=== PATIENT | female | born 1950 | race Caucasian/White ===

== ENCOUNTER 2016-06-23 09:56 | Inpatient (IN) ==
--- NOTE | 2016-06-23 10:10 | PROVIDER DOCUMENTATION ---
HPI-General Adult - General Chief Complaint: Nausea Stated Complaint: NAUSEA, SOB Time Seen by Provider: 06/23/16 10:06 Source: patient Allergies/Adverse Reactions: Patient Allergies Allergy/AdvReac Type Severity Reaction Status Date / Time No Known Allergies Allergy Verified 06/23/16 10:15 Home Medications: Home Medication List Medication Instructions Recorded Confirmed Last Taken Type Calcium Carbonate/Vitamin D3 2 each PO DAILY 12/26/14 06/02/16 06/01/16 History [Calcium 500 + Vit D Caplet] Clonazepam 0.5 mg PO PRN PRN 12/26/14 06/02/16 Unknown History Diphenhydramine [Benadryl] 25 mg PO QHS 12/26/14 06/02/16 06/01/16 History Estradiol Vaginal Cream [Estrace 1 applicator VAG DIRECTED 12/26/14 06/02/16 12/21/14 History Vaginal Cream] Fluticasone 50 Mcg Nasal [place] 1 spray WADE DAILY 12/26/14 06/02/16 06/01/16 History [Flonase] Losartan/Hydrochlorothiazide 1 each PO DAILY 12/26/14 06/02/16 06/01/16 History [Losartan-Hctz 50-12.5 mg Tab] Multivitamin [Daily Multiple 1 each PO DAILY 12/26/14 06/02/16 12/26/14 History Vitamin] Vit C/Vit E AC/Lut/Copper/Zinc 2 each PO DAILY 12/26/14 06/02/16 12/26/14 History [Preservision Lutein Softgel] Zinc 50 mg PO DAILY 12/26/14 06/02/16 06/01/16 History Simvastatin 10 mg PO DAILY 06/02/16 06/02/16 06/01/16 History Apixaban [Eliquis] 5 mg PO BID #60 tablet 06/04/16 Unknown Rx Diltiazem C.d. [Cardizem Cd] 120 mg PO DAILY #30 capsule 06/04/16 Unknown Rx Levothyroxine [Synthroid] 50 microgm PO DAILY #30 06/04/16 06/02/16 06/01/16 Rx - History of Present Illness -Gen Adult Nature of Presenting Problems: 66 yo female presents to ER with c/o nausea and stomach ache after eating honey mustard pretzels yesterday. She did have 2 BM this morning but not diarrhea. She denies shortness of breath and chest pain. She has a stress test scheduled with Dr. Parr tomorrow. Location of Pain/Injury: reports: none Pain Radiation: reports: no radiation Quality of Pain: reports: none Severity: reports: mild Onset/Duration: reports: last night Timing: reports: still present Context/Activities at Onset: reports: possible bad food Modifying Factors: improves with: nothing Associated Symptoms: reports: nausea Similar Symptoms Previously?: No Recently seen or treated by another doctor?: No Review of Systems - Adult - REVIEW OF SYSTEMS - ADULT Constitutional: reports: no symptoms reported Eyes: reports: no symptoms reported Ears, Nose, Mouth & Throat: reports: no symptoms reported Cardiovascular: reports: no symptoms reported Respiratory: reports: no symptoms reported Gastrointestinal: reports: see HPI, nausea Genitourinary: reports: no symptoms reported Musculoskeletal: reports: no symptoms reported Integumentary: reports: no symptoms reported Neurological: reports: no symptoms reported Psychiatric: reports: no symptoms reported Endocrine: reports: no symptoms reported Hematologic/Lymphatic: reports: no symptoms reported Allergic/Immunologic: reports: no symptoms reported All Other Systems: Reviewed and Negative Past History - Adult - PAST MEDICAL HISTORY-ADULT Review of Records: reports: Old Records Reviewed, Nursing Assessment Review, Medications Reviewed, Social history reviewed & non-contributory. Cardiovascular: reports: A-Fib, HTN, hyperlipidemia Psychiatric: reports: anxiety Endocrine/Immune: reports: thyroid disorder (hypothyroid) - PRIOR SURGERIES/PROCEDURES Surgical/Procedure History: reports: hysterectomy - IMMUNIZATION STATUS Childhood Immunizations: See Nurse Assessment Flu Vaccine: See Nurse Assessment - SOCIAL HISTORY Substance Use: none/never, denies Alcohol Use Frequency: never Living Situation: family Physical Exam-General - PHYSICAL EXAM-ADULT Initial Vital Signs Reviewed: Yes - CONSTITUTIONAL General Appearance: alert, no apparent distress - EYES Eyes: PERRL/EOMI - HEAD, EARS, NOSE, MOUTH & THROAT HENMT: normocephalic/atraumatic - RESPIRATORY Respiratory: no respiratory distress - CARDIOVASCULAR Cardiovascular: tachycardia, irregularly irregular - GASTROINTESTINAL (ABDOMEN) Abdominal Exam: normal bowel sounds, non tender, soft - MUSCULOSKELETAL Back Exam: normal inspection Extremity: normal inspection, no pedal edema - SKIN Integumentary: normal turgor, warm/dry, pallor - NEUROLOGIC Neurologic: grossly normal - PSYCHIATRIC Psych/Mental Status: normal mood/affect, normal thought content, normal thought process, oriented x 3 Progress - PLAN OF CARE/RESULTS Progress/Plan/Lab Results: 1015-Discussed patient case/history/reviewed EKG/discussed VS which shows hypotension with Dr. Kumari; he instructed to order cardizem 10mg IV. 1050-Reviewed repeat EKG with Dr. Kumari; instructed to order another cardizem 10mg IV. 1225-Discussed patient case with Dr. Juares; he assessed her at bedside and her VS; instructed to order neosynephrine drip to hang with marcos. 1400-Dr. Ibrahim in ER to see patient. 1425-Spoke with Dr. Ibrahim on the phone; patient will be transferred to [facility] and he has already spoke to Dr. Castro and Dr. Parr in regards to this. Result Diagrams: 06/23/16 10:23 06/23/16 10:23 - REASSESSMENT Reassessment #1 Time Reassessed: 11:07 Status: improving Reassessment Comment: nausea is resolving Reassessment #2 Time Reassessed: 11:45 Status: improving - XRAY 1 XRAY Study: Chest Impression: Normal (no evidence of acute disease) XRAY Interpretation: Interpreted by Dr. Logan - CONSULTS/PCP/HOSPITALIST Notification #1 *Consult/PCP/Hospitalist*: Dr. Parr Time Discussed: 11:40 (cardiology) Reason/Comments: does not admit; call hospitalist #2 Consult: Dr. Ibrahim Time Discussed: 12:00 (Hospitalist) Consult Disposition: Will see in ED Departure - Departure Time of Disposition Decision: 11:11 DIAGNOSIS: Nausea, Atrial fibrillation with RVR Atrial fibrillation Qualifiers: Atrial fibrillation type: unspecified Qualified Code(s): I48.91 - Unspecified atrial fibrillation Hypotension Qualifiers: Hypotension type: other hypotension type Qualified Code(s): I95.89 - Other hypotension Disposition: ADMITTED INPATIENT 09 Certified Medical Emergency: Emergent Condition: Good Attestation - Physician/ JN Attestation Patient care was provided by Advanced Practice Provider:: Yes Advanced Practice Provider:: Molly Lloyd Advanced Practice Provider documentation review:: The Mid-level provider documentation, treatment plan and medical decision making was reviewed by the physician who agrees with all treatment and medical decision making by the MLP.
[2016-06-23] MEDS ORDERED: ZOFRAN IV ONE (10:12)
[2016-06-23] MEDS ORDERED: NS 1,000 ML IV ONE ×2 (10:12→11:06)
[2016-06-23] MEDS ORDERED: CARDIZEM IV ONE ×2 (10:18→10:51)
--- NOTE | 2016-06-23 10:26 | EKG Report ---
Test Performed on : 06/23/2016 10:09:41 AM Test Reason : WEAK Blood Pressure : / mmHG Vent. Rate : 106 BPM Atrial Rate : 340 BPM P-R Int : 000 ms QRS Dur : 080 ms QT Int : 334 ms P-R-T Axes : 000 039 -04 degrees QTc Int : 443 ms Atrial fibrillation. with rapid ventricular response. Low voltage QRS Cannot rule out Anterior infarct (cited on or before 03-JUN-2016) Abnormal ECG When compared with ECG of 03-JUN-2016 08:01, Atrial fibrillation. has replaced Sinus rhythm. Nonspecific T wave abnormality no longer evident in Lateral leads Unconfirmed Result
[2016-06-23 10:30] LABS: MANUAL DIFF NEEDED? NO
[2016-06-23 10:31] LABS: BASO% 0.8 % (0.0-0.8); EOS# 0.01 X1000 (0.0-0.7); EOS% 0.2 % (0.0-10.0); HEMATOCRIT 37.7 % (37.0-47.0); HEMOGLOBIN 12.9 g/dL (12.0-16.0); LYMPH# 1.19 X1000 (1.2-3.4); LYMPH% 23.6 % (20.5-51.1); MCH 31.1 PG (27-31); MCHC 34.2 g/dL (33-37); MCV 90.8 FL (81-99); MONO% 7.9 % (1.7-9.3); MPV 9.7 FL (7.4-10.4); NEUT% 67.5 % (42.2-75.2); PLT 311 X1000 (130-400); RBC 4.15 XMIL (4.2-5.4)
[2016-06-23 10:49] LABS: AGAP 15; ALBUMIN 4.1 g/dL (3.5-5.0); ALKALINE PHOSPHATASE 72 U/L (32-104); AMYLASE 47 U/L (20-200); BUN 13 mg/dL (8-22); CALCIUM 9.8 mg/dL (8.8-10.2); CHLORIDE 93 mmol/L (98-107); COSMO 264; GOT 21 U/L (10-30); GPT 14 U/L (10-36); LIPASE 35 U/L (13-60); POTASSIUM 3.7 mmol/L (3.5-5.1); SODIUM 130 mmol/L (136-145); TCO2 22 mmol/L (25-35); TOTAL PROTEIN 6.5 g/dL (6.3-8.3)
[2016-06-23] MEDS ORDERED: NS 1,000 ML ONE (11:06)
[2016-06-23 11:08] LABS: CK-MB 2.18 ng/mL (0.0-5.0)
[2016-06-23 11:21] LABS: INR 1.31 (0.86-1.15); PROTIME 16.6 Seconds (12.1-15.5)
[2016-06-23 11:22] LABS: PTT PL 37.1 Seconds (22.6-43.9)
--- NOTE | 2016-06-23 11:30 | Diag Imaging Result Document ---
PROCEDURE NAME: CHEST-PORTABLE - 06/23/2016 PORTABLE CHEST: FINDINGS: Compared to 09/26/2016. Heart size is normal. There is mild tortuosity of the thoracic aorta. The lungs appear clear. There is no pleural effusion or pneumothorax identified. IMPRESSION: No evidence of acute disease.
[2016-06-23 11:54] LABS: URINE CULTURE PL NEEDED? NO
[2016-06-23 12:08] LABS: BILIRUBIN URINE NEGATIVE (NEGATIVE); BLOOD URINE 1+ (NEGATIVE); CLARITY CLEAR (CLEAR); COLOR YELLOW; GLUCOSE URINE NEGATIVE (NEGATIVE); LEUKOCYTES URINE TRACE (NEGATIVE); NITRITE URINE NEGATIVE (NEGATIVE); PROTEIN URINE NEGATIVE (NEGATIVE); UROBILINOGEN URINE NORMAL
[2016-06-23 12:09] LABS: URINE EPITHELIAL CELLS <10 /HPF (<10); URINE SOURCE CLEAN CATCH; URINE WBC <10 /HPF (<10)
[2016-06-23] MEDS: CARDIZEM 100 MG/NS 100 MG/100 ML IVPB IV SCH (12:13)
--- NOTE | 2016-06-23 12:15 | EKG Report ---
Test Performed on : 06/23/2016 11:15:18 AM Test Reason : REPEAT Blood Pressure : / mmHG Vent. Rate : 077 BPM Atrial Rate : 340 BPM P-R Int : 000 ms QRS Dur : 082 ms QT Int : 390 ms P-R-T Axes : 000 014 -33 degrees QTc Int : 441 ms Atrial fibrillation. Low voltage QRS Abnormal ECG When compared with ECG of 23-JUN-2016 10:32, (Unconfirmed) Atrial fibrillation. has replaced Atrial flutter. Unconfirmed Result
--- NOTE | 2016-06-23 12:16 | EKG Report ---
Test Performed on : 06/23/2016 10:32:01 AM Test Reason : REPEAT Blood Pressure : / mmHG Vent. Rate : 097 BPM Atrial Rate : 267 BPM P-R Int : 000 ms QRS Dur : 082 ms QT Int : 358 ms P-R-T Axes : 000 018 -24 degrees QTc Int : 454 ms Atrial flutter. with variable AV block. Low voltage QRS Abnormal ECG When compared with ECG of 23-JUN-2016 10:09, (Unconfirmed) Atrial flutter. has replaced Atrial fibrillation. Unconfirmed Result
[2016-06-23] MEDS ORDERED: NEO-SYNEPHRINE 50 MG in NS 250 ML IV SCH (12:30)
[2016-06-23] MEDS ORDERED: NEO-SYNEPHRINE ONE (12:42)
[2016-06-23] MEDS ORDERED: NS 250 ML ONE (12:43)
--- NOTE | 2016-06-23 15:51 | CONSULTATION ---
DATE OF CONSULTATION: 06/23/2016 REASON FOR CONSULTATION: Cardiology was consulted for atrial fibrillation. HISTORY OF PRESENT ILLNESS: Ms. Janae Huddleston is a 66-year-old lady who has paroxysmal atrial fibrillation. She was recently admitted with atrial fibrillation at [facility] and has been taking her medications regularly. She had done well. In the last 2 weeks she had 1 episode of palpitation again. Yesterday she says she ate some pretzel and she had abdominal discomfort after that, she did not feel well and she came to the emergency room. This time she felt a slight amount of palpitations but no significant palpitations, was noted to be in atrial fibrillation with low blood pressure as well. She was given Cardizem. She was noted to be hypotensive, was given Brando-Synephrine drip, subsequently converted to sinus rhythm. She denies any chest pain. There is no syncope. At time of my examination she did not complain of any chest pain. REVIEW OF SYSTEMS: A 14-point review of system was done. GI System: There is no history of nausea, she had some abdominal discomfort. There is no dizziness or syncope. There is no hematemesis or melena. Central nervous system: No focal weakness to suggest a CVA or TIA. System: There is no dysuria or hematuria. Respiratory System: There is no history of cough, expectoration, hemoptysis. There is no history of fevers or chills. ALLERGIES: She is not known to be allergic to any medication. SOCIAL HISTORY: She does not smoke. Does not drink. PAST MEDICAL HISTORY: Hypertension, hypothyroidism, anxiety disorder, hysterectomy, macular degeneration. HOME MEDICATIONS: Include Klonopin, Benadryl, Eliquis 5 b.i.d., Cardizem CD 120, Synthroid 50, losartan hydrochlorothiazide. PHYSICAL EXAM: Vital signs: Blood pressure at the time of my examination 130/80. Cardiovascular System: Normal jugular venous pressure. There no thyromegaly. No carotid bruit. First and second heart sounds heard. There is no S3, S4 or gallop. Respiratory System: Normal air entry. There is no crepitations or rhonchi. Abdomen: Soft, nontender. There was no guarding or rigidity. Bowel sounds were heard. Central nervous system: Alert, oriented, was moving all 4 extremities. Extremities: Examination of extremities revealed no pedal edema. HEENT: Atraumatic, normocephalic. Pupils were equal and reacting to light. DATA: Sodium 130, potassium 3.7, BUN 13, creatinine 0.8. Troponin negative. ProBNP 4350. Last echocardiogram revealed ejection fraction of 60-65%. There was no wall motion abnormality. ASSESSMENT AND PLAN: Ms Janae Huddleston is a 66-year-old lady who had abdominal discomfort after eating a pretzel noted some palpitations, came to the emergency room, was noted to be in atrial fibrillation, was given Cardizem. She was also noted to be hypotensive, was started on a Brando-Synephrine drip. She converted to sinus rhythm. RECOMMENDATIONS: 1. She has paroxysmal atrial fibrillation and she had a preserved left ventricular systolic function on echocardiogram recently, she has reverted to sinus rhythm. Will discontinue the Brando-Synephrine. 2. Will set her up to undergo a Cardiolite stress test in the morning to rule out ischemia. 3. Given her paroxysmal symptoms on 3 occasions we will start her on sotalol 40 mg twice daily. 4. We will check her lab work in the morning to make sure BMP is stable. 5. She had elevated proBNP. Echocardiogram was unremarkable. Chest x-ray done on 06/23/2016 was normal. 6. For anticoagulation therapy she is on Eliquis. Would recommend continuing Eliquis. 7. For hypertension we will discontinue the losartan/hydrochlorothiazide, keep her only on the losartan and start her on sotalol. I will discontinue the Cardizem as well. Thank you for the consult. Will follow. cc: Manav Parr MD
[2016-06-23] MEDS: COZAAR PO SCH (16:47)
[2016-06-23] MEDS: BETAPACE PO SCH (16:48)
[2016-06-23] MEDS ORDERED: TYLENOL PO PRN (17:13)
[2016-06-23] MEDS ORDERED: ZOFRAN IV PRN (17:13)
--- NOTE | 2016-06-23 17:36 | HISTORY AND PHYSICAL ---
HISTORY OF PRESENT ILLNESS: Patient is a 66-year-old who presented. She just did not feel good. She said 3 weeks ago she had an episode where she had kind of this film, she felt like of a hazy film over her eyes and just felt bad. Came in to [place]. I think at that time they found some atrial fibrillation and she converted spontaneously. She has done pretty well at home, but then today she felt bad again similarly to when she went to [place]. When she went to the emergency room, they found atrial fibrillation with rapid ventricular rate. She converted back spontaneously into sinus rhythm, and right now she is in sinus rhythm and again feels better. She does get these episodes of epigastric discomfort if she has not eaten in a while and food seems to make her queasy. She was tried on some Prilosec, but apparently it began to give her some lower abdominal cramps. Her primary care doctor is Dr. Alex Toro. PAST MEDICAL HISTORY: 1. Hypertension. 2. Hypothyroidism. Apparently she is followed for a thyroid nodule per Dr. Pompa. She should be on Synthroid 75 mcg daily. 3. She has history of anxiety. 4. Seasonal allergies. 5. Macular degeneration. PAST SURGICAL HISTORY: Status post hysterectomy. SOCIAL HISTORY: Negative for alcohol or tobacco. She is , 1 daughter. FAMILY HISTORY: Father with stomach cancer. Sister with a history of liver cancer and uterine cancer. She has a mother with history of macular degeneration. She has 3 sisters. REVIEW OF SYSTEMS: General: No weight gain or loss. No fever or chills. HEENT: Unremarkable. Respiratory: No increased work of breathing or dyspnea. Cardiovascular: No chest pain or tachy palpitations. GI/: No gross hematuria or dysuria. Musculoskeletal/Neurologic: No significant complaints. Endocrinologic/Hematologic: No significant history. PHYSICAL EXAMINATION: VITAL SIGNS: Temperature 99.3 degrees, pulse 79, respirations 18, blood pressure 121/73. PUPILS: Were equal, round, reactive to light and accommodation. Oral and nasal and mucosa unremarkable. Conjunctivae pink. Sclerae clear. Tympanic membranes intact. NECK: Supple without adenopathy or thyromegaly. WEIGHT: 204 pounds. HEIGHT: 5 feet 9 inches. LABORATORY: White count 5040, hematocrit 37, platelet count 311,000. Sodium 130, potassium 3.7, chloride 93, BUN 13, creatinine 0.8, blood sugar 148, calcium 9.8, CPK was 216, ProBNP 2435, troponin was less than 0.01. ProTime was 16.6, PTT was 37. Urinalysis was unremarkable. There was 10-20 microscopic red blood cells. RADIOLOGY: Chest x-ray: No evidence of acute disease. MEDICATIONS: Eliquis 5 mg b.i.d. Calcium carbonate. Vitamin D3 500, vitamin D caplet two daily. Clonazepam 0.5 mg p.r.n. Cardizem CD 120 mg daily. Estradiol vaginal cream, not sure how often. Fluticasone 1 puff daily. Synthroid 50 mcg daily. Losartan/hydrochlorothiazide 50/12.5 one a day. Multivitamin 1 a day. Simvastatin 10 mg a day. Vitamin C, vitamin E, copper, zinc. For vision lutein soft gel two daily. Zinc 50 mg daily. ASSESSMENT AND PLAN: 1. Some presyncopal feelings and apparently some hypotension 3 weeks ago, accompanied by atrial fibrillation. She is back in sinus rhythm. Her blood pressures look good. I will plan on putting her on a little bit of p.o. Cardizem and maybe some p.o. digoxin. She is already on diltiazem 120 mg a day. I will go up to 180 mg daily and maybe add digoxin. We will see what Dr. Guajardo and Karolyn want to do. 2. Hypertension. Blood pressure appears well controlled. We will keep her on losartan/hydrochlorothiazide. 3. Electrolytes look pretty unremarkable. I will supplement a little bit of potassium and check her magnesium in the morning. 4. Thyroid nodule which is being watched. We will check a T4 and TSH. Continue her present Synthroid. cc: Ahsan Canas MD
[2016-06-23] MEDS ORDERED: KLONOPIN PO PRN ×2 (18:23→18:56)
[2016-06-23] MEDS: ELIQUIS PO SCH (20:03)
[2016-06-23] MEDS: BENADRYL PO SCH (20:05)
[2016-06-23] MEDS ORDERED: ELIQUIS PO SCH (21:00)
[2016-06-24 04:55] LABS: MANUAL DIFF NEEDED? NO
[2016-06-24 04:59] LABS: BASO% 0.5 % (0.0-0.8); EOS# 0.05 X1000 (0.0-0.7); EOS% 0.8 % (0.0-10.0); HEMATOCRIT 33.9 % (37.0-47.0); HEMOGLOBIN 11.6 g/dL (12.0-16.0); LYMPH# 1.97 X1000 (1.2-3.4); LYMPH% 32.1 % (20.5-51.1); MCH 31.9 PG (27-31); MCHC 34.2 g/dL (33-37); MCV 93.1 FL (81-99); MONO# 0.59 X1000 (0.11-0.59); MONO% 9.6 % (1.7-9.3); MPV 10.1 FL (7.4-10.4); PLT 266 X1000 (130-400); RBC 3.64 XMIL (4.2-5.4)
[2016-06-24 05:06] LABS: INR 1.13; PTT 27.3 Seconds (22.0-36.0)
[2016-06-24 05:19] LABS: AGAP 14; ALBUMIN 3.6 g/dL (3.5-5.0); ALKALINE PHOSPHATASE 60 U/L (32-104); BUN 11 mg/dL (8-22); CHLORIDE 102 mmol/L (98-107); COSMO 282; GOT 18 U/L (10-30); GPT 12 U/L (10-36); MAGNESIUM 1.9 mg/dL (1.5-2.7); POTASSIUM 3.9 mmol/L (3.5-5.1); SODIUM 142 mmol/L (136-145); TCO2 26 mmol/L (25-35); TOTAL BILIRUBIN 0.58 mg/dL (0.20-1.00); TOTAL PROTEIN 5.7 g/dL (6.3-8.3)
[2016-06-24 05:21] LABS: FREE T4 1.54 ng/dL (0.93-1.70)
[2016-06-24] MEDS: BETAPACE PO SCH ×2 (05:39→18:18)
[2016-06-24] MEDS: PROTONIX PO SCH ×2 (05:39→06:02)
--- NOTE | 2016-06-24 06:04 | EKG Report ---
Test Performed on : 06/23/2016 4:27:30 PM Test Reason : No Order in [employer] Blood Pressure : / mmHG Vent. Rate : 071 BPM Atrial Rate : 071 BPM P-R Int : 200 ms QRS Dur : 084 ms QT Int : 404 ms P-R-T Axes : 036 007 008 degrees QTc Int : 439 ms Normal sinus rhythm. mild diffuse T wave flattening Borderline ECG When compared with ECG of 23-JUN-2016 15:08, (Unconfirmed) Nonspecific T wave abnormality now evident in diffusely Confirmed by Carlyn SUMMERS, Ede Ricardo ([id number]) on 06/24/2016 9:02:46 AM
--- NOTE | 2016-06-24 06:07 | EKG Report ---
Test Performed on : 06/23/2016 3:08:36 PM Test Reason : No Order in [employer] Blood Pressure : / mmHG Vent. Rate : 071 BPM Atrial Rate : 071 BPM P-R Int : 204 ms QRS Dur : 074 ms QT Int : 428 ms P-R-T Axes : 079 023 011 degrees QTc Int : 465 ms Normal sinus rhythm. Low voltage QRS Borderline ECG When compared with ECG of 23-JUN-2016 11:15, (Unconfirmed) Sinus rhythm. has replaced Atrial fibrillation. Nonspecific T wave abnormality, improved in Inferior leads Unconfirmed Result
--- NOTE | 2016-06-24 07:13 | EKG Report ---
Test Performed on : 06/24/2016 06:57:24 AM Test Reason : A-fib Blood Pressure : / mmHG Vent. Rate : 063 BPM Atrial Rate : 063 BPM P-R Int : 196 ms QRS Dur : 086 ms QT Int : 446 ms P-R-T Axes : 025 010 011 degrees QTc Int : 456 ms Normal sinus rhythm. Normal ECG When compared with ECG of 23-JUN-2016 16:27, (Unconfirmed) Nonspecific T wave abnormality no longer evident in Anterior leads Confirmed by Carlyn SUMMERS, Ede Ricardo ([id number]) on 06/24/2016 9:08:42 AM
[2016-06-24] MEDS ORDERED: LEXISCAN ONE (09:19)
--- NOTE | 2016-06-24 09:56 | PROGRESS NOTE ---
DATE: 06/24/2016 SUBJECTIVE: Ms. Huddleston had a good night. Appears to be in sinus rhythm. OBJECTIVE: Vital Signs: Temperature 98.6 degrees, pulse 60, respirations 18, blood pressure 110/68. Lungs: Are clear in all lung brooke. Cardiovascular Examination: Regular rhythm and rate without murmur or S3. Abdomen: Soft. Skin: Warm and dry. Is and Os: Urine output was 2300 mL. Lab: Reviewed from this morning. White count 6140, hematocrit 33, platelet count 266,000. Sodium 142, potassium 3.9, chloride 102, bicarb 26, BUN 11, creatinine 0.9, blood sugars 127. Total protein 5.7. EKG from this morning appears to be normal sinus rhythm, normal EKG. ASSESSMENT AND PLAN: Paroxysmal atrial fibrillation. Plan is for a cardiac stress test and cardiology following enzymes. Troponin less than 0.01. Hemodynamically appears stable but she has had 2 episodes of paroxysmal atrial fibrillation. I think the plan is for an exercise stress test or chemical stress test today. cc: Ahsan Canas MD
[2016-06-24] MEDS: FLONASE NAS SCH (10:52)
[2016-06-24] MEDS: COZAAR PO SCH (10:52)
[2016-06-24] MEDS: ELIQUIS PO SCH ×2 (10:52→21:29)
[2016-06-24] MEDS: CALTRATE 600 + D PO SCH ×2 (10:52→21:29)
[2016-06-24] MEDS: SYNTHROID PO SCH (10:52)
[2016-06-24] MEDS: OCUVITE LUTEIN & ZEAXANTHIN PO SCH (10:52)
[2016-06-24] MEDS: CARDIZEM 100 MG/NS 100 MG/100 ML IVPB IV SCH (10:53)
[2016-06-24] MEDS: PATIENT'S OWN MED PO SCH (10:53)
--- NOTE | 2016-06-24 18:16 | Diag Imaging Result Document ---
PROCEDURE NAME: MYOCARDIAL PERF SCAN, STR/REST - 06/24/2016 STUDY: Rest-stress Lexiscan myocardial perfusion study. INDICATION: Patient with atrial fibrillation, hypertension. PRIMARY PHYSICIAN: Adrian Siddiqi MD REQUESTED BY: Hospitalist Service. DESCRIPTION: The patient came into the Nuclear Lab, received a rest injection of technetium 99 sestamibi 14.9 millicuries. Multiple tomographic views of the cardiac structure were obtained at rest. Subsequently the patient underwent infusion of Lexiscan 0.4 mg per protocol. At peak infusion, injected with technetium 99 sestamibi 42.1 millicuries. Multiple tomographic views of the cardiac structure were obtained following completion of the protocol. SUMMARY OF ELECTROCARDIOGRAPHIC PORTION OF STUDY: Resting electrocardiogram shows sinus rhythm, rate 61 beats per minute. Resting blood pressure 107/73. Resting ECG shows sinus rhythm with nonspecific ST-T abnormality. During infusion of Lexiscan, the heart rate increased to a maximum of 90 beats per minute. Blood pressure dropped to 89/60. The patient reported no chest pain, shortness of breath, or palpitations. ECG showed some exaggeration of the baseline abnormality. Following the completion of the infusion, the heart rate and blood pressure returned back to baseline. No significant abnormalities were noted during the recovery phase. IMPRESSION: In summary, the electrocardiographic response to infusion of Lexiscan is deemed to be nonspecific. SUMMARY OF MYOCARDIAL PERFUSION PORTION OF STUDY: Poststress tomographic views of the left ventricle showed normal homogeneous distribution of radiotracer throughout the entire left ventricular myocardium. There is no evidence of any postexercise defect. Rest images show normal perfusion. Polar plots reveal the same. There is no evidence of neither inducible ischemia nor myocardial scar. Gated SPECT shows normal left ventricular systolic function. Ejection fraction estimated at 81% with normal ventricular volumes. No wall motion abnormality. The lung/heart ratio is normal. TID is normal. IMPRESSION: In summary, this study shows: 1. Nonspecific electrocardiographic response to Lexiscan. 2. Normal poststress myocardial perfusion scan. There is no scintigraphic evidence of pharmacologically induced myocardial ischemia utilizing the Lexiscan protocol. 3. Normal left ventricular systolic function. Ejection fraction estimated at 81% with normal ventricular volumes. No wall motion abnormality. This study would indicate a low risk for ischemic events. Clinical correlation recommended. cc: Lucho N. MD Manav Guajardo MD
[2016-06-24] MEDS ORDERED: ZOCOR PO SCH (21:00)
[2016-06-24] MEDS: BENADRYL PO SCH (21:29)
[2016-06-25] MEDS: BETAPACE PO SCH (05:45)
--- NOTE | 2016-06-25 06:23 | EKG Report ---
Test Performed on : 06/25/2016 06:07:28 AM Test Reason : afib Blood Pressure : / mmHG Vent. Rate : 053 BPM Atrial Rate : 053 BPM P-R Int : 190 ms QRS Dur : 088 ms QT Int : 478 ms P-R-T Axes : 029 007 012 degrees QTc Int : 448 ms Sinus bradycardia. Otherwise normal ECG When compared with ECG of 24-JUN-2016 06:57, No significant change was found Confirmed by Carlyn SUMMERS, Ede Ricardo ([id number]) on 06/26/2016 5:41:23 PM
[2016-06-25] MEDS: PROTONIX PO SCH (07:00)
[2016-06-25] MEDS: COZAAR PO SCH (08:12)
[2016-06-25] MEDS: SYNTHROID PO SCH (08:12)
[2016-06-25] MEDS: CALTRATE 600 + D PO SCH (08:12)
[2016-06-25] MEDS: FLONASE NAS SCH (08:12)
[2016-06-25] MEDS: ELIQUIS PO SCH (08:12)
[2016-06-25] MEDS: OCUVITE LUTEIN & ZEAXANTHIN PO SCH (08:12)
[2016-06-25] MEDS: PATIENT'S OWN MED PO SCH (08:13)
[2016-06-25 11:22] VITALS: BP 107/69
--- NOTE | 2016-06-26 09:39 | DISCHARGE SUMMARY ---
ADMISSION DATE: 06/23/2016 DISCHARGE DATE: 06/25/2016 CONSULTATIONS: Dr. Parr, cardiology. PERTINENT PROCEDURES: Rest stress Lexiscan showed nonspecific electrocardiographic response Lexiscan, normal post stress test, myocardial perfusion scan. No evidence of pharmacological induced myocardial ischemia. DISCHARGE DIAGNOSES: 1. Paroxysmal atrial fibrillation. Patient underwent a Cardiolite stress test that was normal. Cardiology also started the patient on sotalol. Echocardiogram was unremarkable. The patient will continue on Eliquis. 2. Hypertension. They discontinued her combinations losartan/hydrochlorothiazide, keeping her on losartan, to start her on sotalol. Also discontinued the Cardizem as well. 3. Hypothyroidism. Continue Synthroid. 4. Anxiety. 5. Seasonal allergies. 6. Macular degeneration. HOSPITAL COURSE: Ms. Huddleston is a 66-year-old female with a past medical history of hypertension, hypothyroidism, anxiety, seasonal allergies, macular degeneration, paroxysmal atrial fibrillation. Reported to the ED not feeling well. She stated 3 weeks ago, she had an episode where she had a hazy feeling over her eyes and just felt bad. She came to [facility]. She state they did find some atrial fibrillation that she is converted spontaneously. She was doing well at home. She felt bad again, similar to the episode where she went to [facility]. She went back to the emergency room. Was found to be in atrial fibrillation with RVR but she converted back spontaneously into sinus rhythm. Patient was admitted for paroxysmal atrial fibrillation with a cardiology consult. She did undergo a normal Cardiolite stress test. She was started on sotalol 40 mg daily. Echocardiogram was unremarkable. Chest x-ray was normal. The patient will continue on Eliquis. They did discontinue her losartan/hydrochlorothiazide and gave her only on losartan to start her on her sotalol as well as discontinued her Cardizem. Cardiac enzymes were negative. Hemodynamically, the patient has remained stable. She has maintained a sinus rhythm. Cardiology felt that the patient could be discharged home today. PHYSICAL EXAMINATION: Vital Signs: At time of her discharge, temperature was 98.4 degrees, heart rate of 58, respirations 22, blood pressure 107/69, O2 is 99% on room air. DISCHARGE DIET: Healthy heart. DISCHARGE MEDICATIONS: 1. Eliquis 5 mg p.o. b.i.d. 2. Calcium 500 plus vitamin D 2 each p.o. daily. 3. Clonazepam 0.5 mg p.o. p.r.n. 4. Benadryl 25 mg p.o. at bedtime. 5. Flonase one spray nasally daily. 6. Synthroid 50 mcg p.o. daily. 7. Cozaar 50 mg p.o. daily. 8. Simvastatin 10 mg p.o. daily. 9. Sotalol 40 mg p.o. q.12 hours. 10. PreserVision lutein soft gel 2 each p.o. daily. 11. Zinc 50 mg p.o. daily. FOLLOWUP: Patient is being discharged home. She will need to follow up with her primary care physician, Dr. Alex Toro, as well as Dr. Parr. The patient will need to continue to monitor her heart rate. Discharge time of 30 minutes. Dictated by PIPE Leone for Kole Villalta MD cc: MD Alex Weaver MD
== END 2016-06-25 14:15 | disposition home or self-care (01) ==
LOC: P.ED 09:56 → 3S 09:56 → OBSVTOIN 15:14 → SUATTDRO 15:14
PROVIDERS: ATTEND Internal Medicine